=== PATIENT | female | born 1960 | race Caucasian/White ===

== ENCOUNTER 2017-03-07 | Inpatient (IN) ==
[2017-03-07] MEDS ORDERED: ASPIRIN PO STA (00:06)
[2017-03-07] MEDS ORDERED: G.I. COCKTAIL PO ONE (00:45)
[2017-03-07] MEDS ORDERED: ZOFRAN IV ONE (00:47)
[2017-03-07 00:48] LABS: MANUAL DIFF NEEDED? NO
[2017-03-07 00:53] LABS: BASO% 0.3 % (0.0-0.8); EOS# 0.19 X1000 (0.0-0.7); EOS% 2.1 % (0.0-10.0); HEMATOCRIT 37.7 % (37.0-47.0); HEMOGLOBIN 13.2 g/dL (12.0-16.0); LYMPH# 2.72 X1000 (1.2-3.4); LYMPH% 29.7 % (20.5-51.1); MCH 30.5 PG (27-31); MCV 87.1 FL (81-99); MONO# 0.52 X1000 (0.11-0.59); MONO% 5.7 % (1.7-9.3); MPV 10.5 FL (7.4-10.4); NEUT% 62.2 % (42.2-75.2); PLT 297 X1000 (130-400); RBC 4.33 XMIL (4.2-5.4)
[2017-03-07 01:04] LABS: INR 0.96; PROTIME 10.1 Seconds (9.2-11.7); PTT 24.7 Seconds (22.0-36.0)
[2017-03-07] MEDS ORDERED: PHENERGAN IV ONE (01:18)
[2017-03-07] MEDS ORDERED: SODIUM CHLORIDE 0.9% INJ ONE (01:18)
[2017-03-07 01:19] LABS: AMYLASE 58 U/L (20-200); LIPASE 47 U/L (13-60)
[2017-03-07 01:21] LABS: AGAP 12; ALBUMIN 3.9 g/dL (3.5-5.0); ALKALINE PHOSPHATASE 74 U/L (32-104); BUN 15 mg/dL (8-22); CALCIUM 9.2 mg/dL (8.8-10.2); CHLORIDE 105 mmol/L (98-107); CK PROFILE 46 U/L (24-173); COSMO 278; GOT 32 U/L (10-30); GPT 16 U/L (10-36); MAGNESIUM 1.8 mg/dL (1.5-2.7); POTASSIUM 3.9 mmol/L (3.5-5.1); SODIUM 138 mmol/L (136-145); TCO2 21 mmol/L (25-35); TOTAL BILIRUBIN 0.22 mg/dL (0.20-1.00)
[2017-03-07] MEDS ORDERED: REGLAN IV ONE (02:06)
--- NOTE | 2017-03-07 02:29 | ED EKG INTERP ---
This chart was entered by Miguel Mcmahan Scribe, acting as scribe for Francisco Conn MD. EKG Interpretation - EKG Time of EKG reading by physician:: 00:27 EKG Read and Signed by:: Francisco Conn EKG Interpretation (*Must complete 3 of following elements*): Normal Rate: 62 Rhythm: NSR This chart was documented by the indicated scribe, (Miguel Mcmahan Scribe) and accurately reflects the services I performed and decisions made by Fabien bruce Warren D., MD, as attested by the provider's signature.
--- NOTE | 2017-03-07 02:30 | PROVIDER DOCUMENTATION ---
This chart was entered by Miguel Mcmahan Scribe, acting as scribe for Francisco Conn MD. HPI-Abdominal Pain/GI Problem - General Chief Complaint: Epigastric Pain Stated Complaint: CP Time Seen by Provider: 03/07/17 00:35 Source: patient Allergies/Adverse Reactions: Patient Allergies Allergy/AdvReac Type Severity Reaction Status Date / Time bupropion HCl * Allergy RASH Verified 12/07/14 03:20 [From Wellbutrin] morphine Allergy VOMITING Verified 12/07/14 03:20 Home Medications: Home Medication List Medication Instructions Recorded Confirmed Last Taken Type Estradiol 1 mg PO DAILY 12/07/14 03/07/17 12/06/14 History Omeprazole 40 mg PO DAILY #30 capsule. 12/07/14 03/07/17 Unknown Rx - History of Present Illness-ABD Nature of Presenting Problems: Pt pierre 56 yowf who presents to ER with CC of substernal CP with nausea that started around 2200 last pm and radiates to submidscapula. Pt denies any other sxs, but does report a known hx of gallstones and hx of M.S. Pt reports that her pain was 10/10 on arrival, but is 5/[address] Roe at bedside, called by pt. Abdominal Pain Onset Location: reports: other (substernal) Pain Radiation: reports: scapula (submidscapula) Quality of Pain: reports: pressure Severity in ED: reports: moderate Onset/Duration: reports: 4-6 hours ago Timing: reports: improving Associated Symptoms: reports: back/neck pain, chest pain (substernal), nausea. denies: arm pain, cough, fatigue, fever/chills, headaches, heartburn, loss of appetite, muscle aches, shortness of breath, syncope, vomiting, weakness, trouble walking Last BM: unsure Dark Stools Present?: reports: none noticed Rectal Bleeding: reports: none Rectal Pain: reports: none Emesis Description: reports: none Review of Systems - Adult - REVIEW OF SYSTEMS - ADULT Constitutional: denies: chills, fever, fatique, night sweats, weight gain, weight loss Eyes: reports: no symptoms reported Ears, Nose, Mouth & Throat: reports: no symptoms reported Cardiovascular: reports: chest pain (substernal). denies: irregular heart rate , palpitations, poor circulation, syncope Respiratory: reports: no symptoms reported Gastrointestinal: reports: abdominal pain (substernal), nausea, other (known gallstones). denies: hematemesis, constipation, diarrhea, difficulty swallowing , frequent heartburn, poor appetite, rectal bleeding, vomiting Genitourinary: reports: no symptoms reported Musculoskeletal: reports: no symptoms reported Integumentary: reports: no symptoms reported Neurological: reports: no symptoms reported Psychiatric: reports: no symptoms reported Endocrine: reports: no symptoms reported Hematologic/Lymphatic: reports: no symptoms reported Allergic/Immunologic: reports: no symptoms reported All Other Systems: Reviewed and Negative Past History - Adult - PAST MEDICAL HISTORY-ADULT Review of Records: reports: Nursing Assessment Review, Medications Reviewed Cardiovascular: reports: arrhythmia (frequent PVC's required ablation) Neurological: reports: Multiple Sclerosis - PRIOR SURGERIES/PROCEDURES Surgical/Procedure History: reports: hysterectomy, tonsillectomy, other ( cardiac ablation) - IMMUNIZATION STATUS Childhood Immunizations: See Nurse Assessment Flu Vaccine: See Nurse Assessment - FAMILY HISTORY Family History: reviewed, not pertinent Physical Exam-General - PHYSICAL EXAM-ADULT Initial Vital Signs Reviewed: Yes - CONSTITUTIONAL General Appearance: appears well, alert, moderate distress - EYES Eyes: PERRL/EOMI, pink conjunctivae - RESPIRATORY Respiratory: chest non-tender, lungs clear, normal breath sounds, no pleuratic chest pain, no respiratory distress, no accessory muscle use. negative: respiratory distress, decreased breath sounds, accessory muscle use, wheezing - CARDIOVASCULAR Cardiovascular: normal peripheral pulses, regular rate, rhythm. negative: bradycardia, tachycardia, irregularly irregular - GASTROINTESTINAL (ABDOMEN) Abdominal Exam: normal bowel sounds, soft, no organomegaly, no pulsatile mass, tenderness (mild epigastric/substernal). negative: non tender, abnormal bowel sounds, distended, guarding - MUSCULOSKELETAL Back Exam: no CVA tenderness, no vertebral tenderness. negative: CVA tenderness , vertebral tenderness Extremity: normal range of motion, non-tender, normal gait, normal inspection, no pedal edema, no calf tenderness, normal capillary refill, pelvis stable. negative: deformity, erythema, inflammation, swelling, tenderness - PSYCHIATRIC Psych/Mental Status: normal thought content, normal thought process, oriented x 3, disheveled. negative: normal mood/affect Progress - PLAN OF CARE/RESULTS Progress/Plan/Lab Results: Vital Signs - 8 hr 07/03/17 00:08 Temperature 97.3 F L Pulse Rate 61 Respiratory Rate 20 Blood Pressure 147/89 O2 Sat by Pulse Oximetry 100 Orders Category Date Time Status Cardiac Monitoring DIRECTED Care 03/07/17 00:06 Active Saline Loc NOW Care 03/07/17 00:06 Active CHEST-2 VIEWS [RAD] Stat Exams 03/07/17 00:06 Taken CBC WITH ELECTRONIC DIFF [HEME] Stat Lab 03/07/17 00:19 Ordered CK PROFILE [SP CHEM] Stat Lab 03/07/17 00:19 Ordered COMPREHENSIVE METABOLIC PANEL [CHEM] Stat Lab 03/07/17 00:19 Ordered D-DIMER [CHEM] Stat Lab 03/07/17 00:19 Ordered LIPASE [CHEM] Stat Lab 03/07/17 00:44 Uncollected MAGNESIUM [CHEM] Stat Lab 03/07/17 00:19 Ordered PRO B-NATRIURETIC PEPTIDE Stat Lab 03/07/17 00:19 Ordered PROTIME WITH INR [COAG] Stat Lab 03/07/17 00:19 Ordered PTT [COAG] Stat Lab 03/07/17 00:19 Ordered TROPONIN T Stat Lab 03/07/17 00:19 Ordered Aspirin Med 03/07/17 00:06 Discontinued 325 mg PO STAT STA EKG [EKG] Stat Ther 03/07/17 00:06 Ordered Result Diagrams: 03/07/17 00:35 03/07/17 00:35 - REASSESSMENT Reassessment #1 Time Reassessed: 01:18 (Pt reports no relief from zofran or GI cocktail.) Status: unchanged Reassessment #2 Time Reassessed: 02:06 (Pt reports that she vomitedx1 after receiving phenergan , first emesis bag was thrown away by Dr. Roe (Dr. Roe reports emesis bag was 1/2 full, with food particles present). Pt reports that her pain is subsiding, but nausea is still present. Pt HTN (166/125).) - XRAY 1 XRAY: Bilateral XRAY Study: Chest Impression: See EMR Report XRAY Interpretation: No acute abnormalities - Dr. Conn 2 XRAY: Bilateral XRAY Study: Abdomen, Pelvis Impression: See EMR Report XRAY Interpretation: constipation, othrwise normal - Dr. Conn Departure - Departure Date of Disposition Decision: 03/07/17 Time of Disposition Decision: 03:59 DIAGNOSIS: Cholelithiasis Qualifiers: Cholelithiasis location: gallbladder Cholecystitis presence: without cholecystitis Biliary obstruction: without biliary obstruction Qualified Code(s) : K80.20 - Calculus of gallbladder without cholecystitis without obstruction Disposition: ADMITTED INPATIENT 09 Certified Medical Emergency: Emergent Condition: Stable Referrals and Follow-Ups: Ulises Roldan MD [Primary Care Provider] - - Critical Care Note This patient required my direct & personal management of CC.: No This chart was documented by the indicated scribe, (Miguel Mcmahan Scribe) and accurately reflects the services I performed and decisions made by me, Francisco Conn MD, as attested by the provider's signature.
[2017-03-07] MEDS ORDERED: NS 1,000 ML IV ONE (03:41)
--- NOTE | 2017-03-07 05:34 | EKG Report ---
Test Performed on : 03/07/2017 00:08:30 AM Test Reason : Re-Ordered/CP Blood Pressure : / mmHG Vent. Rate : 062 BPM Atrial Rate : 062 BPM P-R Int : 114 ms QRS Dur : 070 ms QT Int : 440 ms P-R-T Axes : 067 078 073 degrees QTc Int : 446 ms Normal sinus rhythm. Normal ECG When compared with ECG of 01-DEC-2016 16:20, Nonspecific T wave abnormality now evident in Inferior leads Unconfirmed Result
--- NOTE | 2017-03-07 06:20 | Diag Imaging Result Doc PS360 ---
EXAM: CT ABD/PELVIS W/ IV CONT ONLY HISTORY: vomiting/ constipation/ GB stones/MS TECHNIQUE: Dose reduction protocol COMPARISON: None. FINDINGS: There are calcified granuloma in the lower lungs. Small hypodense nodule in the right lobe of liver believed to be a cyst. Normal spleen, pancreas, and adrenal glands. The gallbladder is distended. Mild periportal edema. No inflammation about the gallbladder and no calcified gallstones. Normal enhancement of the kidneys with several tiny cysts. No hydronephrosis. No aortic aneurysm. The small para-aortic lymph nodes. No bowel obstruction. There is stool throughout the colon. Normal appendix. No abscess. Tiny fat filled umbilical hernia. The urinary bladder is moderately distended and appears normal. The uterus has been removed. Trace pelvic fluid. No pelvic mass. IMPRESSION: 1.[place] distended gallbladder, but no adjacent inflammation or calcified stones. 2.Constipation 3.Hysterectomy with trace pelvic fluid 4.Likely tiny hepatic and renal cysts 5.A preliminary report was given at 3:22 PM. Electronically signed by Raji Thakkar 03/07/2017 6:18 AM
[2017-03-07] MEDS ORDERED: ZOFRAN IV PRN (06:30)
[2017-03-07] MEDS ORDERED: DILAUDID IV PRN (06:30)
--- NOTE | 2017-03-07 06:39 | Diag Imaging Result Doc PS360 ---
CHEST-2 VIEWS - 03/07/2017 INDICATION: CP TECHNIQUE: COMPARISON: 12/01/2016 FINDINGS: The lungs are normally expanded and clear. Heart size and mediastinal contours are normal. No pneumothorax or pleural effusion. IMPRESSION: Negative exam. Electronically signed by Keaton Hoffman 03/07/2017 6:37 AM
--- NOTE | 2017-03-07 06:40 | Diag Imaging Result Doc PS360 ---
ABDOMEN FLAT/UPRIGHT - 03/07/2017 INDICATION: epigastric pain TECHNIQUE: Two views COMPARISON: None FINDINGS: There is a nonobstructive bowel gas pattern. No free air or abdominal calcifications. IMPRESSION: No acute disease. Electronically signed by Keaton Hoffman 03/07/2017 6:38 AM
--- NOTE | 2017-03-07 07:05 | HISTORY AND PHYSICAL ---
CHIEF COMPLAINT: Epigastric pain radiating into her back. HISTORY: This is a 56-year-old, white female who began experiencing pain in her epigastrium radiating into her back around 9 or 10 o'clock last night. She had eaten [employer] for supper. She has had mildly similar episodes in the past which resolved. She has been told that she has gallstones. She reports having had an ultrasound over a year ago at one of the screening facilities or screening opportunities. PAST MEDICAL HISTORY: Pertinent for multiple sclerosis which limits her occasionally. She does stumble somewhat but is still ambulatory. She has taken infusions in the distant past. MEDICATIONS: Her only medications currently are Prilosec and estradiol. ALLERGIES: She has an allergy to Wellbutrin and morphine. PREVIOUS SURGERIES: Include a hysterectomy, a tonsillectomy, and a cardiac ablation. FAMILY HISTORY: Noncontributory. SOCIAL HISTORY: She denies smoking or alcohol use. REVIEW OF SYSTEMS: Constitutional: Negative for chills or fever. Eyes: Negative. Ears, Nose, and Throat: Negative. Cardiovascular: She has occasionally irregular heart rate. Respiratory: Negative. GI: She occasionally has constipation, heartburn, poor appetite, occasional vomiting. : Negative. Musculoskeletal: Known for her multiple sclerosis. Integumentary: Negative. Neurologic: Occasional syncope. Multiple sclerosis. Psychiatric: Negative. Endocrine: Negative. Hematologic: Negative. Allergic: Negative. PHYSICAL EXAMINATION: VITAL SIGNS: She is afebrile. Heart rate 57, respiratory rate 18, blood pressure 110/68. NECK: No cervical adenopathy. LUNGS: Bilateral breath sounds. HEART: Regular rate and rhythm. ABDOMEN: Soft and she is nontender. Bowel sounds are present. EXTREMITIES: No peripheral edema. NEUROLOGIC: She is awake and alert. DIAGNOSTICS/LABS: White count is 9000, hemoglobin 13, hematocrit 37. PT/INR negative. BUN is 15, creatinine 0.6. LFTs are normal. Amylase and lipase are normal. ASSESSMENT: Dilated gallbladder on a CT scan. However, clinical exam was quite unremarkable. She does have stool consistent with some mild constipation. PLAN: The plan will be to further work up her gallbladder with ultrasound and possible HIDA scan. cc: Eliecer Kenyon MD
[2017-03-07] MEDS: PRILOSEC PO SCH (07:15)
--- NOTE | 2017-03-07 09:47 | Diag Imaging Result Doc PS360 ---
US ABDOMEN-COMPLETE - 03/07/2017 INDICATION: epigastric pain COMPARISON: CT from earlier 03/07/2017 FINDINGS: The gallbladder is extremely distended. There are numerous small shadowing gallstones. Common bile duct measures 5 mm. The liver, pancreas, spleen, and both kidneys are normal. The gallbladder measures over 14.3 cm. Aorta, IVC, and main portal vein are patent. IMPRESSION: Distended gallbladder. Numerous small gallstones in the gallbladder. Appearance is consistent with early acute cholecystitis. Correlate clinically. Electronically signed by Keaton Hoffman 03/07/2017 9:45 AM
[2017-03-07] MEDS ORDERED: KEFZOL 1 GM/D5W 1 GM/50 ML IVPB IV ONE (10:57)
--- NOTE | 2017-03-07 15:32 | EKG Report ---
Test Performed on : 03/07/2017 1:03:48 PM Test Reason : pre-op Blood Pressure : / mmHG Vent. Rate : 052 BPM Atrial Rate : 052 BPM P-R Int : 144 ms QRS Dur : 082 ms QT Int : 468 ms P-R-T Axes : 076 073 059 degrees QTc Int : 435 ms Sinus bradycardia. Otherwise normal ECG When compared with ECG of 07-MAR-2017 00:08, (Unconfirmed) Nonspecific T wave abnormality, improved in Inferior leads Confirmed by Taylor Slaughter MD ([id number]) on 03/08/2017 8:03:53 AM
[2017-03-07] MEDS ORDERED: SODIUM CHLORIDE 0.9% ONE (16:01)
[2017-03-07] MEDS ORDERED: LR 1,000 ML ONE (16:02)
[2017-03-07] MEDS ORDERED: FENTANYL ONE ×2 (16:26→17:22)
[2017-03-07] MEDS ORDERED: DIPRIVAN 1% ONE ×2 (16:26→17:57)
[2017-03-07] MEDS ORDERED: XYLOCAINE-MPF 2% ONE (16:37)
[2017-03-07] MEDS ORDERED: NEOSPORIN OINTMENT PACKET ONE (16:37)
[2017-03-07] MEDS ORDERED: QUELICIN (DOSE) ONE (16:37)
[2017-03-07] MEDS ORDERED: REGLAN ONE (16:37)
[2017-03-07] MEDS ORDERED: ROBINUL ONE (16:40)
[2017-03-07] MEDS ORDERED: NEOSTIGMINE ONE (16:41)
[2017-03-07] MEDS: MARCAINE 0.25% PF/EPI 1:200,000 ONE ×2 (17:00→17:13)
[2017-03-07] MEDS ORDERED: NARCAN ONE (17:40)
--- NOTE | 2017-03-07 17:43 | Diag Imaging Result Doc PS360 ---
EXAM: OPERATIVE CHOLANGIOGRAM HISTORY: GB DISEASE TECHNIQUE: Four views COMPARISON: None. FINDINGS: Contrast fills the common bile duct and has emptied into the duodenum. No stone or stricture. IMPRESSION: Normal intraoperative cholangiogram. Electronically signed by Raji Thakkar 03/07/2017 5:41 PM
[2017-03-07] MEDS ORDERED: PHENERGAN ONE (18:10)
[2017-03-07] MEDS ORDERED: DEMEROL ONE (18:10)
[2017-03-07] MEDS: PERIDEX MT SCH ×2 (19:53→20:51)
--- NOTE | 2017-03-07 20:05 | OPERATIVE NOTE ---
PROCEDURE DATE: 03/07/2017 PROCEDURE PERFORMED: Laparoscopic cholecystectomy with operative cholangiogram. SURGEON: Eliecer Kenyon MD. DIGITAL ASSOCIATE MEDIA DIRECTOR: JOSÉ LUIS Mckeon. PREOPERATIVE DIAGNOSIS: Chronic calculous cholecystitis. POSTOPERATIVE DIAGNOSIS: Chronic calculous cholecystitis. FINDINGS: The cholangiogram revealed a normal size common duct, free flow into the duodenum. No intraluminal filling defects were seen. DESCRIPTION OF PROCEDURE: Satisfactory general endotracheal anesthesia was achieved. The abdomen was prepped and draped in a sterile fashion. We anesthetized the skin at the base of the umbilicus, incised the skin, and carried our incision down to the fascia. We scored the fascia and entered the abdominal cavity with the Optiview technique. We insufflated through this trocar. Under direct visualization we used a 5 trocar midclavicular line, 5 trocar near the anterior axillary line, and an 11 mm trocar in the midepigastrium. The gallbladder was noted to be quite distended. We placed the patient in reverse Trendelenburg and turned him to the left. We aspirated the gallbladder to decompress it. We then grasped it with a ratcheted Allis forceps, and reflected it cephalad. We began dissection of the triangle of [place]. Identified the cystic artery, clipped it proximally x2, distally x1, and divided it. We then incised the cystic duct. After clipping it near its junction with the cystic duct near the junction of the gallbladder. We introduced a Lennox catheter. We shot the cholangiogram. The findings above were noted. We removed the cholangiogram catheter, clipped the cystic duct. On the opposite side did a cystic ductotomy x2 and transected it. We then used the cautery spatula to dissect the gallbladder away from the liver. After complete separation of the gallbladder from the liver, we changed the videolaparoscope through the mid epigastric trocar. We introduced an EndoCatch, placed the gallbladder within the bag and delivered it to the abdominal cavity. We had to enlarge the fascial incision and skin incision in order to deliver the gallbladder out of the abdominal cavity due to the multiple number of stones. We had some bleeding at the umbilicus. We identified the bleeding point and cauterized the artery, achieving satisfactory hemostasis. We replaced the umbilical trocar. We reinsufflated and looked back, hemostasis was satisfactory. We aspirated what fluid had collected. We then decompressed the abdominal cavity and removed the trocars. We closed the fascia at the umbilicus with 2-0 Polysorb fascial stitches. We closed the fascia at the epigastrium with a 2-0 Polysorb fascial stitch. We then closed the skin at each incision with 4-0 Polysorb subcuticular stitches. Sterile OpSite were applied. She tolerated it well. Was sent to the recovery room in satisfactory condition. cc: Eliecer Kenyon MD
[2017-03-07] MEDS: NORCO-10 PO PRN (23:09)
[2017-03-08] MEDS: PRILOSEC PO SCH (06:26)
[2017-03-08] MEDS: NORCO-10 PO PRN (06:26)
--- NOTE | 2017-03-08 06:40 | PROGRESS NOTE ---
DATE: 03/08/2017 SUBJECTIVE: Patient is doing well. No major issues. OBJECTIVE: Vital Signs: Patient is currently afebrile. Her vital signs are stable. General: No acute distress. Cardiovascular: Regular rate and rhythm. Lungs: Grossly clear. Abdomen: Soft. Appropriately tender. Incisions are doing well. ASSESSMENT AND PLAN: A 56-year-old, female, status post laparoscopic cholecystectomy Postoperative state: At this time, patient is doing clinically well. She can be discharged home today. cc: MD Eliecer Lawrence MD
[2017-03-08 08:11] VITALS: BP 101/63
[2017-03-08] MEDS: PERIDEX MT SCH (08:54)
== END 2017-03-08 09:36 | disposition home or self-care (01) ==
LOC: ED → 4N 00:01
PROVIDERS: ADMIT Surgery; ATTEND Surgery